=== PATIENT | female | born 2000 | race Caucasian/White ===

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

== ENCOUNTER 2021-04-19 08:00 | Emergency (ER) | payer MEDICAID ==
[~2021-04-19] VITALS: Ht 165.1 cm; Wt 61.2 kg
[2021-04-19 08:18] VITALS: BP_SYST 123
[2021-04-19] MEDS ORDERED: ATRMDI INH (08:36)
[2021-04-19] MEDS ORDERED: ALBMDI INH (08:36)
[2021-04-19] MEDS ORDERED: FLUT16SP16 NS (08:36)
[2021-04-19] MEDS ORDERED: DEXAMETHASONE SOD PHOSPHATE 10 MG/ML VIAL PO ONE (08:45)
[2021-04-19 09:15] VITALS: BP_SYST 123
== END 2021-04-19 09:15 | disposition home or self-care (01) ==
LOC: SED 08:00
DX: J45.901 Unspecified asthma with (acute) exacerbation (principal); J30.9 Allergic rhinitis, unspecified; Z88.1 Allergy status to other antibiotic agents; Z79.899 Other long term (current) drug therapy
CPT/HCPCS: 99283; J1100